=== PATIENT | female | born 1965 | race Caucasian/White ===

== ENCOUNTER 2020-11-05 08:25 | Outpatient (CLI) | payer BC, SELFPAY ==
--- NOTE | ~2020-11-05 | MM_ITS ---
EXAMINATION: MM screening cristiane BI w jimena HISTORY: Screening mammogram TECHNIQUE: Craniocaudal and mediolateral oblique 3-D tomosynthesis images were obtained and synthetic 2-D images were generated. CAD analysis was submitted and interpreted. COMPARISON: 10/07/2019, 09/08/2018, 08/17/2017 bilateral digital screening mammogram examinations BREAST PARENCHYMAL COMPOSITION: There are scattered areas of fibroglandular density. FINDINGS: There is no evidence of suspicious mass, calcification, or architectural distortion to sugg est malignancy in either breast. There has been no suspicious interval change. IMPRESSION: 1. No mammographic evidence of malignancy. 2. Recommend routine screening mammography in one year. BI-RADS Category 1: Negative Reviewed, dictated and finalized at location B. CE CLERK
== END 2020-11-05 08:26 | disposition home or self-care (01) ==
LOC: ANHIMG 08:27
PROVIDERS: PCP Family Medicine; Visit Provider Obstetrics & Gynecology
DX: Z12.31 Encounter for screening mammogram for malignant neoplasm of breast (principal)
CPT/HCPCS: 77063; 77067

== ENCOUNTER 2021-10-15 10:01 | Emergency (ER) | payer BC, SELFPAY ==
[2021-10-15 10:17] VITALS: BP 119/81; PULSE 71; RESP 18; TEMP 36.6; O2SAT 97
--- NOTE | 2021-10-15 10:24 | ED.FEMALEGU ---
HPI - Female Genitourinary General Chief complaint: Urogenital-Female Stated complaint: low back pain,frequent urge to urinate Source: patient and RN notes reviewed Limitations: no limitations History of Present Illness HPI Narrative: The patient, who is a prior history of UTIs, presents with urinary symptoms. Patient states she has half week history of typical urinary frequency, dysuria; no fever, vomiting/diarrhea, abdominal pain, blood. She was seen and treated with Macrobid here in the past month for pansensitive E. coli, with improvement. Related Data Home Medications Medication Instructions Recorded Confirmed hydroxychloroquine 200 mg tablet 200 mg PO BID 09/29/21 09/29/21 cyclobenzaprine mg 10/15/21 metoprolol succinate PO 10/15/21 metoprolol succinate PO 10/15/21 Allergies Allergy/AdvReac Type Severity Reaction Status Date / Time Aminoglycosides Allergy Unknown Unknown Verified 10/15/21 10:27 bacitracin Allergy Unknown Unknown Verified 10/15/21 10:27 codeine Allergy Unknown Unknown Verified 10/15/21 10:27 morphine Allergy Unknown Unknown Verified 10/15/21 10:27 neomycin Allergy Unknown Unknown Verified 10/15/21 10:27 POLYMYXINBSULF Allergy Unknown Unknown Uncoded 10/15/21 10:27 Review of Systems Review of Systems: General/Constitutional: No weight loss,fever Eyes: N0: Redness,discharge Ears/Nose/Throat: No: Epistaxis,ear discharge Respiratory: Denies: Hemoptysis Gastrointestinal: No Vomiting, Bleeding-rectal Skin: No Lumps, eruption Neurologic: No Focal Weakness,Sz Hematologic: Denies: Petechiae/Purpura Psychiatric: No: Suicida ideationl All Other Systems: Reviewed and Negative [facility] Past Medical History Medical History BMI 32.0-32.9,adult BMI 33.0-33.9,adult Family History Family History Grandparent Carcinoma of colon Family history of malignant neoplasm of uterus Sibling Family history of diabetes mellitus in first degree relative Social History Social History Smoking status: Never smoker Alcohol intake: never Substance use: never Substance use type: does not use 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 There is no relevant family history pertinent to the presenting complaint Exam Narrative: General Appearance: Well appearing, Conjunctiva clear Ears: External ear normal Mouth/Throat: Normal appearing, Normal lips, Supple Respiratory: Airway patent, No respiratory distress Cardiovascular: RRR Abdomen: Soft, Non-tender, No Musculoskeletal: Full ROM Skin: Warm, Dry Neurological: A&O x3, , Normal affect Course Vital Signs Vital signs: Vital Signs Temperature 97.8 F 10/15/21 10:17 Pulse Rate 71 10/15/21 10:17 Respiratory Rate 18 10/15/21 10:17 Blood Pressure 119/81 10/15/21 10:17 Pulse Oximetry 97 10/15/21 10:17 Temperature 97.8 F 10/15/21 10:17 Pulse Rate 71 10/15/21 10:17 Respiratory Rate 18 10/15/21 10:17 Blood Pressure 119/81 10/15/21 10:17 Pulse Oximetry 97 10/15/21 10:17 MDM - Female Genitourinary Lab Data Labs: Urine Glucose Negative Reference Range: Negative Urine Bilirubin Negative Reference Range: Negative Urine Ketone Negative Reference Range: Negative Urine Specific [place] 1.015 Referen
== END 2021-10-15 10:53 | disposition home or self-care (01) ==
PROVIDERS: Emergency Provider Emergency Medicine; PCP Family Medicine
DX: N30.90 Cystitis, unspecified without hematuria (principal); I10 Essential (primary) hypertension; E05.90 Thyrotoxicosis, unspecified without thyrotoxic crisis or storm
CPT/HCPCS: 81003; 87086; 99213; G0463

== ENCOUNTER → 2021-11-09 15:16 | Outpatient (CLI) | payer BC, SELFPAY ==
--- NOTE | ~2021-11-09 | MM_ITS ---
EXAMINATION: MM screening [facility] BI w jimena HISTORY: Screening mammogram TECHNIQUE: Craniocaudal and mediolateral oblique 3-D tomosynthesis images were obtained and synthetic 2-D images were generated. CAD analysis was submitted and interpreted. COMPARISON: 11/05/2020, 09/27/2019, 09/12/2018 BREAST PARENCHYMAL COMPOSITION: There are scattered areas of fibroglandular density. FINDINGS: There is no evidence of suspicious mass, calcification, or architectural distortion to sugg est malignancy in either breast. There has been no suspicious interval change. IMPRESSION: 1. No mammographic evidence of malignancy. 2. Recommend routine screening mammography in one year. BI-RADS Category 1: Negative Reviewed, dictated and finalized at location A. NING CUSTODIAN
== END ==
PROVIDERS: PCP Family Medicine; Visit Provider Obstetrics & Gynecology
DX: Z12.31 Encounter for screening mammogram for malignant neoplasm of breast (principal)
CPT/HCPCS: 77063; 77067

== ENCOUNTER → 2021-11-18 12:31 | Outpatient (CLI) | payer BC, SELFPAY ==
--- NOTE | ~2021-11-18 | DEXA_ITS ---
Bone Density Report Name: GHAZAL DUCKWORTH Age: 56 Sex: Female Ethnicity: White Date of : 1965 Indication: osteopenia; height loss; prior fracture; hysterectomy; postmenopausal Referring Provider: Matthew Shelton Study: Bone densitometry was performed. Exam Date: November 18, 2021 Accession number: [id number] Bone Density: Region BMD T-score Z-score Classification AP Spine (L1-L4) 0.846 -1.8 -0.5 Osteopenia Femoral Neck (Left) 0.733 -1.0 0.2 Normal Total Hip (Left) 0.921 -0.2 0.7 Normal Femoral Neck (Right) 0.724 -1.1 0.1 Osteopenia Total Hip (Right) 0.960 0.1 1.0 Normal Total Hip Mean 0.941 -0.1 0.9 Normal World Health Organization criteria for BMD impression classify patients as: Normal (T-score at or above -1.0), Osteopenia (T-score between -1.0 and -2.5), or Osteoporosis (T-score at or below -2.5). 10-year Fracture Risk(1): Major Osteoporotic Fracture 11% Hip Fracture 0.6% Reported Risk Factors: [place] (), Neck BMD=0.724, BMI=34.0, previous fracture (1) FRAX(R) Version 3.08. Fracture probability calculated for an untreated patient. Fracture probability may be lower if the patient has received treatment. Previous Exams: Region Exam Age BMD T-score BMD Change BMD Change Date g/cm2 vs Baseline vs Previous AP Spine(L1-L4) 11/18/2021 56 0.846 -1.8 -0.020 -0.020 02/16/2018 52 0.865 -1.7 Total Hip(Left) 11/18/2021 56 0.921 -0.2 -0.057 -0.057 02/16/2018 52 0.978 0.3 Total Hip(Right) 11/18/2021 56 0.960 0.1 -0.065 -0.065 02/16/2018 52 1.024 0.7 *Denotes significance at 95% confidence level, LSC for AP Spine = 0.022 g/cm2, LSC for Total Hip = 0.027 g/cm2 Clinical Information Provided by Patient: Has had a low trauma fracture Has the following medical conditions: Hysterectomy Patient maximum height was 65 Menopause Age: 38 Does not regularly consume dairy products Drinks caffeinated beverages Onset of menses at age 11 Number of children 2 Missed period for more than 6 months in a row Impression: The patient has low bone mass, based on the Total Spine T-score. The patient has an estimated ten-year risk of hip fracture of 0.6% and an estimated ten-year risk of major fracture of 11%, based on the WHO FRAX algorithm. The patient has risk factors, including: previous fracture. No significant bone loss was observed. Discussion: BONE DENSITY
== END ==
PROVIDERS: PCP Family Medicine; Visit Provider Obstetrics & Gynecology
DX: Z13.820 Encounter for screening for osteoporosis (principal); M85.89 Other specified disorders of bone density and structure, multiple sites
CPT/HCPCS: 77080

== ENCOUNTER 2022-10-21 00:36 | Day surgery (SDC) | payer BC, SELFPAY ==
[2022-09-23 11:00] VITALS: BMI 33.9
[2022-10-21 11:16] VITALS: BP 126/76; PULSE 96; RESP 18; TEMP 36.3; O2SAT 94
--- NOTE | 2022-10-21 11:16 | PM.HPGS ---
History of Present Illness History of Present Illness Consent: Risks, benefits, and alternatives have been discussed and questions answered. Patient agrees to proceed with procedure. Chief complaint: neoplasm screening Narrative: Kaye Martinez is a 57 year old female Presents for screening colonoscopy. Patient's current weight appetite and bowel movements are normal. Patient denies abdominal pain. She has had no bleeding. Patient has a past medical history of a colon polyp 10 years ago that was a benign hyperplastic polyp. Family history is significant that her grandfather had colon cancer. First her very relatives are normal there is no history of polyps. Specifically previous history of colon polyps in mother was erroneously. Review of Systems Review of Systems: Review of systems is noncontributory. 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 Gender identity (if verbalized by the patient): Female Sexual Orientation (if Verbalized by the Patient): Straight or Heterosexual Spiritual care concerns: No Agree to blood products: Yes Meds Home Medications and Allergies Home Medications Medication Instructions Recorded Confirmed Type hydroxychloroquine 200 mg tablet 200 mg PO BID 09/29/21 09/23/22 History cyclobenzaprine 10 mg tablet 10 mg PO PRN PRN Pain 10/15/21 09/23/22 History metoprolol succinate 25 mg 25 mg PO HS 10/15/21 09/23/22 History tablet,extended release 24 hr albuterol sulfate 90 mcg/actuation 1 inh inhalation Q4H PRN shortness 08/09/22 09/23/22 Rx aerosol inhaler (ProAir HFA) of breath or wheezing #6.7 grams vitamin B complex (B 1 tablet PO DAILY 08/22/22 09/23/22 History Complex-Vitamin B12 tablet) sodium,potassium,mag sulfates 17.5 See Rx Instructions PO .COMPLEX 09/01/22 09/23/22 Rx gram-3.13 gram-1.6 gram oral soln #354 mL (Suprep Bowel Prep Kit) levothyroxine 175 mcg tablet See Rx Instructions .Route 09/07/22 09/23/22 Rx .COMPLEX #90 tabs polyethylene glycol 3350 17 17 g PO PRN PRN Constipation 09/23/22 09/23/22 History gram/dose oral powder (Miralax) Allergies Allergy/AdvReac Type Severity Reaction Status Date / Time Aminoglycosides Allergy Unknown Unknown Verified 10/21/22 11:13 bacitracin Allergy Unknown Unknown Verified 10/21/22 11:13 codeine Allergy Unknown Unknown Verified 10/21/22 11:13 morphine Allergy Unknown Unknown Verified 10/21/22 11:13 carisoprodol [From Soma] AdvReac Unknown Confusion Verified 10/21/22 11:13 POLYMYXINBSULF Allergy Unknown Unknown Uncoded 10/21/22 11:13 Exam Narrative: Physical exam reveals patient to be alert. Vital signs stable. HEENT exam is unremarkable. Patient is anicteric. Lungs are clear to auscultation and percussion. Heart is without murmur or extra sounds. Abdomen bowel sounds present soft nontender with no hepatosplenomegaly. Digital external rectal exam is normal. Assessment and Plan Assessment and plan (1) Screening for colon cancer: Code(s): Z12.11 - Encounter for screening for malignant neoplasm of colon Status: Acute Assessment and Plan: Patient presents today for screening colonoscopy. Appears to be at average risk for colon polyps. Is noted patient's grandfather had colon cancer. Further recommendations may be given after endosco
[2022-10-21] MEDS: LACTATED RINGERS 1,000 ML 150 ML IV CONT (11:27)
--- NOTE | 2022-10-21 11:36 | WPDANESEPPF ---
Anes - Initial Pre Proc Eval Procedure: Operation Date: 10/21/22 12:30 Proposed Procedures p Screening Colonoscopy - Herberth Parker MD Date/Time: 10/21/22 11:36 Surgeon: Herberth Parker MD Pre Op Diagnosis: neoplasm screening Patient Data Age: 57 Gender: F Height: 1.64 m Weight: 93.5 kg Last Vital Signs Temp 36.3 C L 10/21/22 11:16 Pulse 96 10/21/22 11:16 Resp 18 10/21/22 11:16 BP 126/76 10/21/22 11:16 Pulse Ox 94 10/21/22 11:16 O2 Del Method Room Air 10/21/22 11:16 Allergies Allergy/AdvReac Type Severity Reaction Status Date / Time Aminoglycosides Allergy Unknown Unknown Verified 10/21/22 11:13 bacitracin Allergy Unknown Unknown Verified 10/21/22 11:13 codeine Allergy Unknown Unknown Verified 10/21/22 11:13 morphine Allergy Unknown Unknown Verified 10/21/22 11:13 carisoprodol [From Soma] AdvReac Unknown Confusion Verified 10/21/22 11:13 POLYMYXINBSULF Allergy Unknown Unknown Uncoded 10/21/22 11:13 Home Medications Medication Instructions Recorded Confirmed Type hydroxychloroquine 200 mg tablet 200 mg PO BID 09/29/21 09/23/22 History cyclobenzaprine 10 mg tablet 10 mg PO PRN PRN Pain 10/15/21 09/23/22 History metoprolol succinate 25 mg 25 mg PO HS 10/15/21 09/23/22 History tablet,extended release 24 hr albuterol sulfate 90 mcg/actuation 1 inh inhalation Q4H PRN shortness 08/09/22 09/23/22 Rx aerosol inhaler (ProAir HFA) of breath or wheezing #6.7 grams vitamin B complex (B 1 tablet PO DAILY 08/22/22 09/23/22 History Complex-Vitamin B12 tablet) sodium,potassium,mag sulfates 17.5 See Rx Instructions PO .COMPLEX 09/01/22 09/23/22 Rx gram-3.13 gram-1.6 gram oral soln #354 mL (Suprep Bowel Prep Kit) levothyroxine 175 mcg tablet See Rx Instructions .Route 09/07/22 09/23/22 Rx .COMPLEX #90 tabs polyethylene glycol 3350 17 17 g PO PRN PRN Constipation 09/23/22 09/23/22 History gram/dose oral powder (Miralax) Patient hx anesthesia problems: none Family hx anesthesia problems: none Results Review: All pre-operative results and documents have been reviewed as part of the pre-operative evaluation. [facility] Past Medical History Medical History (Updated 10/21/22 @ 11:37 by Yovanny Banda MD) BMI 34.0-34.9,adult HTN (hypertension) SLE (systemic lupus erythematosus) Surgical History Surgical History (Updated 10/21/22 @ 11:37 by Yovanny Banda MD) H/O laparoscopy H/O sinus surgery H/O: hysterectomy History of shoulder surgery Family History Family History Grandparent Carcinoma of colon Family history of malignant neoplasm of uterus Sibling Family history of diabetes mellitus in first degree relative Social History Social History Smoking status: Never smoker Alcohol intake: never Substance use: never Substance use type: does not use Living arrangements: with family 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 Gender identity (if verbalized by the patient): Female Sexual Orientation (if Verbalized by the Patient): Straight or Heterosexual Spiritual care concerns: No Agree to blood products: Yes Anes - Eval Final PreProcedure Day of Procedure 10/21/22 11:36 Patient weight: obese Heart: regular rate and rhythm Lungs: clear to auscultation Airway: Mallampati scale class II Neurological: alert and oriented Last oral intake: >/= 8 hours ASA classification: III Emergent: no Anesthetic plan: proceed Anesthesia type and monitoring: general GIVS and standard monitoring Results Review: All pre-operative results and documents have been reviewed as part of the pre-operative evaluation. Informed Consent: The patient's anesthetic plan and its attendant risks and benefits were discussed with the patient/family/POA. Questions were solicited and answers provided to the satisfaction of the patient/family/POA.
[2022-10-21 12:19] VITALS: BP 115/90; PULSE 81; RESP 25; O2SAT 100
[2022-10-21 12:29] VITALS: BP 122/76; PULSE 69; RESP 20; O2SAT 100
[2022-10-21 12:39] VITALS: BP 119/76; PULSE 65; RESP 15; O2SAT 100
== END 2022-10-21 12:53 | disposition home or self-care (01) ==
PROVIDERS: PCP Family Medicine; Visit Provider Internal Medicine Gastroenterology
PROC: 0DJD8ZZ Inspection of Lower Intestinal Tract, Via Natural or Artificial Opening Endoscopic (ICD-10-PCS; CPT 45378; principal; 2022-10-21 12:30)
DX: Z12.11 Encounter for screening for malignant neoplasm of colon (principal); K64.8 Other hemorrhoids; K57.30 Diverticulosis of large intestine without perforation or abscess without bleeding; I10 Essential (primary) hypertension; M32.9 Systemic lupus erythematosus, unspecified; Z79.51 Long term (current) use of inhaled steroids; E66.9 Obesity, unspecified; Z68.34 Body mass index [BMI] 34.0-34.9, adult
CPT/HCPCS: 45378; J2704; J7120

== ENCOUNTER 2022-12-16 09:26 | Outpatient (CLI) | payer BC, SELFPAY ==
--- NOTE | ~2022-12-16 | MM_ITS ---
EXAMINATION: MM screening cristiane BI w jimena HISTORY: Screening TECHNIQUE: Craniocaudal and mediolateral oblique 3-D tomosynthesis images were obtained and synthetic 2-D images were generated. CAD analysis was submitted and interpreted. COMPARISON: Comparison to multiple prior studies sequentially, with oldest reviewed study dated 08/04. BREAST PARENCHYMAL COMPOSITION: The breasts are almost entirely fatty. FINDINGS: There is no evidence of suspicious mass, calcification, or architectural distortion to sugg est malignancy in either breast. There has been no suspicious interval change. IMPRESSION: 1. No mammographic evidence of malignancy. 2. Recommend routine screening mammography in one year. BI-RADS Category 1: Negative Reviewed, dictated and finalized at location A. TRICAL ENGINEERING PROFESSOR
== END 2022-12-16 09:27 | disposition home or self-care (01) ==
LOC: ANHIMG 09:28
PROVIDERS: PCP Family Medicine; Visit Provider Obstetrics & Gynecology
DX: Z12.31 Encounter for screening mammogram for malignant neoplasm of breast (principal)
CPT/HCPCS: 77063; 77067

== ENCOUNTER 2023-12-19 13:46 | Outpatient (CLI) | payer BC, SELFPAY ==
--- NOTE | ~2023-12-19 | MM_ITS ---
EXAMINATION: MM screening cristiane BI w jimena HISTORY: Screening TECHNIQUE: Craniocaudal and mediolateral oblique 3-D tomosynthesis images were obtained and synthetic 2-D images were generated. CAD analysis was submitted and interpreted. COMPARISON: Comparison to multiple prior studies sequentially, with oldest reviewed study dated 08/17. BREAST PARENCHYMAL COMPOSITION: Breast composed of scattered areas of fibroglandular density FINDINGS: There is no evidence of suspicious mass, calcification, or architectural distortion to sugg est malignancy in either breast. There has been no suspicious interval change. IMPRESSION: 1. No mammographic evidence of malignancy. 2. Recommend routine screening mammography in one year. BI-RADS Category 1: Negative Reviewed, dictated and finalized at location A. RTMENT OF SOCIOLOGY CHAIR
== END 2023-12-19 13:47 | disposition home or self-care (01) ==
PROVIDERS: PCP Family Medicine; Visit Provider Obstetrics & Gynecology
DX: Z12.31 Encounter for screening mammogram for malignant neoplasm of breast (principal)
CPT/HCPCS: 77063; 77067

== ENCOUNTER → 2023-12-27 14:51 | Outpatient (CLI) | payer BC, SELFPAY ==
--- NOTE | ~2023-12-27 | XR_ITS ---
EXAMINATION: XR chest 2V DATE: 12/27/2023 15:03 INDICATION: Chronic cough. TECHNIQUE: Frontal and lateral views of the chest were obtained. COMPARISON: Chest 2 views 04/01/2010 FINDINGS: There is no pneumonia, pleural effusion, or pneumothorax. The heart size is normal. IMPRESSION: 1. No acute cardiopulmonary disease. Reviewed, dictated and finalized at location E. NG MACHINE OPERATOR VERTICAL
== END ==
PROVIDERS: PCP Physician Assistant; Visit Provider Physician Assistant
DX: R05.9 Cough, unspecified (principal)
CPT/HCPCS: 71046

== ENCOUNTER 2024-03-18 15:31 | Outpatient (CLI) | payer BC, SELFPAY ==
--- NOTE | ~2024-03-18 | XR_ITS ---
EXAMINATION: XR chest 2V 03/18/2024 16:02 INDICATION: Pneumonia PROCEDURE: 2 view chest COMPARISON: 12/27/2023 FINDINGS: The lungs are clear. The cardiomediastinal silhouette is within normal limits. There are no pleural effusions. There is no pneumothorax suspected. IMPRESSION: 1: NO ACUTE CARDIOPULMONARY DISEASE. Reviewed, dictated and finalized at location B.
== END 2024-03-18 15:32 ==
PROVIDERS: PCP Family Medicine; Visit Provider Physician Assistant
DX: J18.9 Pneumonia, unspecified organism (principal)
CPT/HCPCS: 71046

== ENCOUNTER 2024-11-14 11:51 | Outpatient (CLI) | payer BC, SELFPAY ==
--- NOTE | ~2024-11-14 | XR_ITS ---
XR chest 2V Ordering provider: Lizette Mallory APRN History: 59 years Female with . R06.2 - Wheezing . Comparison: None. FINDINGS: MEDIASTINUM: The cardiac silhouette is not enlarged. LUNGS: No infiltrates, effusions or pneumothorax. OTHER: No free air under the diaphragm. IMPRESSION: No acute cardiopulmonary pathology. Reviewed, dictated and finalized at location A. OLOGY PHYSICIAN ASSISTANT
== END 2024-11-14 11:52 | disposition home or self-care (01) ==
PROVIDERS: PCP Family Medicine; Visit Provider Nurse Practitioner Adult Health
DX: R06.2 Wheezing (principal); J40 Bronchitis, not specified as acute or chronic; R05.3 Chronic cough
CPT/HCPCS: 71046

== ENCOUNTER 2025-03-13 09:41 | Outpatient (CLI) | payer BC, SELFPAY ==
--- NOTE | ~2025-03-13 | MM_ITS ---
EXAMINATION: MM screening cristiane BI w jimena HISTORY: Screening TECHNIQUE: Craniocaudal and mediolateral oblique 3-D tomosynthesis images were obtained and synthetic 2-D images were generated. CAD analysis was submitted and interpreted. COMPARISON: Comparison to multiple prior studies sequentially, with oldest reviewed study dated 08/21. BREAST PARENCHYMAL COMPOSITION: Not Dense: The breasts are almost entirely fatty. FINDINGS: There is no evidence of suspicious mass, calcification, or architectural distortion to sugg est malignancy in either breast. There has been no suspicious interval change. IMPRESSION: 1. No mammographic evidence of malignancy. 2. Recommend routine screening mammography in one year. BI-RADS Category 1: Negative Reviewed, dictated and finalized at location A.
--- OUTSIDE RECORDS SUMMARY | 2025-03-13 10:40 | XMS_ITS | Clinical Summary ---
Author Organization [facility] Address [address] [place] [id number] Care Team Providers Care Educational Assistant Name Role Phone Alfredo Carey MD Primary Care Provider [phone] Social History Tobacco Use Types Packs/Day Years Used Date Smoking Tobacco: Never Assessed Comments Unknown Sex and Gender Information Value Date Recorded Sex Assigned at Not on file Legal Sex Female 6:30 PM CDT Gender Identity Not on file Sexual Orientation Not on file Plan of Treatment Health Maintenance Due Date Last Done Comments Cervical Cancer Screening Pa p Smear (Age 30 to 64) Every 3 Years 1965 Colorectal Cancer Screening Colonoscopy (10 Years) 1963 Annual Physical 1966 Hepatitis C 1981 DTaP, Tdap and Td Vaccines ( 1 - Tdap) 1982 Cervical Cancer Screening Pa p with HPV Testing (Age 30 to 64) Every 5 Years 1993 Cervical Cancer Screening with HPV 1993 Mammogram Screening 2003 Pneumococcal Vaccine: 50+ Ye ars (1 of 1 - PCV) 2013 Zoster Vaccines (1 of 2) 2013 COVID-19 Vaccine ( - 2023-2 5 season) 2024 RSV Immunization or 60+ Years (1 - 1-dose 75+ series) 2038 Meningococcal B Vaccine Aged Out No l onger eligible based on patient's age to complete this topic Meningococcal Vaccine Aged Out No prema jose eligible based on patient's age to complete this topic RSV Immunizations Under 20 Months Aged Out No longer eligible based on patient's age to complete this topic Care Teams Educational Assistant Relationship Specialty Start Date End Date Alfredo Carey MD [address] [place] [address] [facility] - General 10/07/13
--- OUTSIDE RECORDS SUMMARY | 2025-03-13 10:40 | XMS_ITS | Encounter Summary ---
Author Organization [facility] Address [address] [place] [address] Care Team Providers Care Scoop Machine Operator Name Role Phone Alfredo Carey MD Primary Care Provider [phone] Encounter Details Date Type Department Care Team (Late st Contact Info) Description 12/07/2020 Lab Requisition [facility] [address] [facility] [facility] [place] [id number] Sherry Kruger MD [address] [place] [address] Social History Tobacco Use Types Packs/Day Years Used Date Smoking Tobacco: Never Smokeless Tobacco: Never Comments No Sex and Gender Information Value Date Recorded Sex Assigned at Female 01/08/2021 2:22 PM PRODUCTION SCHEDULER Legal Sex Female 5:52 PM PRODUCTION SCHEDULER Gender Identity Female 01/08/2021 2:22 PM PRODUCTION SCHEDULER Sexual Orientation Straight 01/08/2021 2: 22 PM PRODUCTION SCHEDULER documented as of this encounter Plan of Treatment Not on file documented as of this encounter Procedures Procedure Name Priority Date/Time Associated Diagnosis Comments DERMATOPATHOLOGY Routine 12/03/2020 3:27 AM PRODUCTION SCHEDULER documented in this encounter Results * DERMATOPATHOLOGY (12/03/2020 3:27 AM PRODUCTION SCHEDULER) Case Report Dermatopathology Report Case: [id number] Authorizing Provider: Sherry Kruger MD Collected: 12/03/2020 03:27 AM Ordering Location: [facility] Derm[facility] Lab Received: 12/07/2020 10:40 AM Pathologist: Mack Osorio MD Specimen: Skin, right calf 1 2:54 PM [facility] DERMATOPATHOLOGY LABORATORY Final Diagnosis Specimen A. SKIN, right calf: VERRUCA VULGARIS (B07.8) 1 2:54 PM [facility] DERMATOPATHOLOGY LABORATORY Clinical History Langdon crusted papule. SCC vs SK. 1 2:54 PM PRODUCTION SCHEDULER DERMATOPATHOLOGY LABORATORY Gross Description Specimen A: Received is one formalin filled container labeled with the patient's name and designated right calf. The specimen consists of a shave measuring [id number]. Jar 0+. 1 2:54 PM [facility] DERMATOPATHOLOGY LABORATORY Microscopic Description Specimen A. SKIN, right calf: There is digitated epidermal hyperplasia, hypergranulosis, vacuolated granular layer cells, and compact hyperorthokeratosis . 1 2:54 PM [facility] DERMATOPATHOLOGY LABORATORY Disclaimer An external and internal positive and negative controls are appropriate for the histochemical, immunohistochemical and immunofluorescence stain(s) in this case (if any), except where stated explicitly. The performance characteristics of the stain(s) cited in this report were developed and its performance characteristic determined by the Dermatopathology Laboratory at [facility], directed by Dr. Sammy Osorio. These tests need not be, and therefore are not, approved by the [place] Food and Drug Administration. The tests are used for clinical purposes. Billing Codes Specimen Charges Stain Charges 91227 1 1 2:54 PM [facility] DERMATOPATHOLOGY LABORATORY Embedded Images 1 2:54 PM [facility] DERMATOPATHOLOGY LABORATORY Pathology/Cytolo gy TISSUE SPECIMEN FROM SKIN / Unknown 12/03/2020 3:27 AM PRODUCTION SCHEDULER 12/07/2020 10:40 AM PRODUCTION SCHEDULER us Sherry Kruger MD LAB - PATHOLOGY/CYTOLOGY ORD ERABLES Final Result DERMATOPATHOLOGY LABORATORY [facility] - Department of Dermatology [address] [phone] documented in this encounter Visit Diagnoses Not on filedocumented in this encounter Care Teams Scoop Machine Operator Relationship Specialty Start Date End Date Alfredo Carey MD [address] [place] [address] PCP - General 02/28/12 documented as of this encounter
--- OUTSIDE RECORDS SUMMARY | 2025-03-13 10:40 | XMS_ITS | Clinical Summary ---
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 Gender Identity Not on file Sexual Orientation Not on file Plan of Treatment Health Maintenance Due Date Last Done Comments Hepatitis C Virus (HCV) Screening 1963 Pap Smear 1984 Cervical Cancer Screening (CCS) 1993 HPV/Cotest 1993 Colonoscopy 2008 Colorectal Cancer Screening 2008 Cologuard 2013 Immunochemical Fecal Occult Blood 2013 Mammogram 2013 Pneumococcal Immunization (5 0+ years) (1 of 1 - PCV) 2013 Zoster Immunization (1 of 2) 2013 Influenza Immunization (#1) 07/21/202412/2019, 08/24/2017 SARS-COV-2 Immunization ( - 2023-25 season) 2024 Respiratory Syncytial Virus (RSV) Immunization (Adult) (1 - 1-dose 75+ series) 2038 DTaP/Tdap/Td Immunization Discontinued 10/26/2015 TdaP Immunization Completed 10/26/2015 Hepatitis B Immunization Aged Out No longer eligible based on patient's age to complete this topic Meningococcal Immunization (ACWY) Aged Out No longer eligible based on patient's age to complete this topic Pneumococcal Immunization Combined Aged Out No longer eligible based on patient's age to complete this topic Rotavirus Immunization Aged Out No lo nger eligible based on patient's age to complete this topic
--- OUTSIDE RECORDS SUMMARY | 2025-03-13 10:40 | XMS_ITS | Clinical Summary ---
Author Organization [facility] Address [address] [facility] [place] [address] Care Team Providers Care Pipe Insulator Helper Name Role Phone Alfredo Carey MD Primary Care Provider [phone] Source Comments [facility],non-owned Affiliates and Associated Physician Practices is amultiple site organization consisting of ambulatory clinics and hospital sitesin [place], [place], [place] and [place]. This disclosure is being madepursuant to the Care Everywhere program and may not contain all information available regarding this patient. Last updated 18.[facility] Allergies Active Allergy Reactions Criticality Noted Date Comments Hydrocodone Nausea and/or Vomiting High 08/25/2019 Morphine Other High 08/25/2019 Hypotension Medications * Be aware that medications may not be up to date on this document. Alwaysverify current medications with the patient. METOPROLOL SUCCINATE PO Active levothyroxine (SYNTHROID) 150 MCG tablet Take 150 mcg by mouth daily before breakfast Active Aspirin-Acetami nophen-Caffeine (EXCEDRIN PO) Active Family History Medical History Relation Name Comments Diabetes - Type 2 Brother Relation Name Status Comments Brother Social History Tobacco Use Types Packs/Day Years Used Date Smoking Tobacco: Never Smokeless Tobacco: Never Comments No Sex and Gender Information Value Date Recorded Sex Assigned at Female 01/08/2021 2:22 PM ART INSTALLER Legal Sex Female 5:52 PM ART INSTALLER Gender Identity Female 01/08/2021 2:22 PM ART INSTALLER Sexual Orientation Straight 01/08/2021 2: 22 PM ART INSTALLER Last Filed Vital Signs Vital Sign Reading Time Taken Comments Blood Pressure 118/82 08/25/2019 12:26 PM CDT Pulse 61 08/25/2019 12:26 PM CDT Temperature 36.6 C (97.8 F) 08/25/2019 12:26 PM CDT Respiratory Rate 16 08/25/2019 12:26 PM CDT Oxygen Saturation 98% 08/25/2019 12:26 PM CDT Inhaled Oxygen Concentration - - Weight 90.7 kg (200 lb) 08/25/2019 12:26 PM CDT Height 163.8 cm (5' 4.5 ) 08/25/2019 12:26 PM CD T Body Mass Index 33.8 08/25/2019 12:26 PM CDT Plan of Treatment Health Maintenance Due Date Last Done Comments COLOGUARD (AGES 45-75) - COL ON CA SCREENING 1963 COLON MONITORING 1963 COLONOSCOPY - COLON CA SCREENING 1963 CT COLONOGRAPHY - COLON CA SCREENING 1963 Colorectal Cancer Screening 1963 FIT - COLON CA SCREENING 1963 FLEX SIG - COLON CA SCREENING 1963 LIPID TESTING 1963 MAMMOGRAM 1963 PAP SMEAR 1963 HIV SCREENING 1978 HEPATITIS C SCREENING 08/22/1981 DTAP/TDAP/TD VACCINES (1 - Tdap) 1982 PNEUMOCOCCAL VACCINE 50+ (1 of 1 - PCV) 2013 ZOSTER VACCINE (1 of 2) 2013 SCREENING FOR DIABETES 08/25/2019 COVID-19 VACCINE ( - 2023-2 5 season) 2024 DEPRESSION SCREENING 11/20/2024 INFLUENZA VACCINE (Season Ended) 2025 Respiratory Syncytial Virus (RSV) Vaccine Pt: or over 60 yrs (1 - 1-dose 75+ series) 2038 HEPATITIS B VACCINE Aged Out No longe r eligible based on patient's age to complete this topic HIB VACCINE Aged Out No longer eligi ble based on patient's age to complete this topic HPV VACCINE Aged Out No longer eligi ble based on patient's age to complete this topic MENINGOCOCCAL (Group B) VACC INE SHARED DECISION-MAKING Aged Out No longer eligibl e based on patient's age to complete this topic MENINGOCOCCAL GROUPS A/C/Y/W VACCINE Aged Out No longer eligible b ased on patient's age to complete this topic Insurance ANTHEM ANTHEM Care Teams Pipe Insulator Helper Relationship Specialty Start Date End Date Alfredo Carey MD [address] [place] [address] PCP - General 02/28/12
--- OUTSIDE RECORDS SUMMARY | 2025-03-13 10:40 | XMS_ITS | Clinical Summary ---
Author Organization [facility] Address [address] [place] [address] Care Team Providers Care Terminal System Operator Name Role Phone Alfredo Carey MD Primary Care Provider [phone] Allergies Active Allergy Reactions Criticality Noted Date Comments Carisoprodol Mental status changes,Other (See comments) Medium 04/20/1987 disorientation Cilantro Other (See comments) Low 11/23/2022 Hoarseness Codeine Nausea & Vomiting,Nausea only,Vomiting Low 08/20/1984 Morphine Seizures,Hypotension ,He adache,Palpitations High 06/29/2004 Hypotension Other reaction(s): Hypotension Medications hydrOXYchloroQUIN E (PLAQUENIL) 200 mg tabletIndications :Systemic Lupus Erythematosus Take 1 tablet (200 mg total) by mouth 2 (two) times a day 1 Active levothyroxine (SYNTHROID) 175 mcg tabletIndications :hypothyroidism Take 1 tablet (175 mcg total) by mouth daily 1 Active metoprolol XL (TOPROL-XL) 50 mg extended release tabletIndications :hypertension,PVC 's Take 1 tablet (50 mg total) by mouth nightly 3 Active predniSONE (DELTASONE) 10 mg tabletIndications :autoimmune disease,takes with lupus exacerbation Take 1 tablet (10 mg) by mouth as needed Active triamcinolone (Nasacort) 55 mcg nasal inhalerIndication s:Allergic Rhinitis,Allergic Rhinitis Prevention Administer 1 spray into each nostril as needed for rhinitis or allergies 4 Active cyclobenzaprine (FLEXERIL) 10 mg tabletIndications :Muscle Spasm Take 1 tablet (10 mg total) by mouth nightly as needed for muscle spasms 3 Active famotidine (PEPCID) 10 mg tabletIndications :Prevention of Stress Ulcer Take 1 tablet (10 mg total) by mouth 2 (two) times a day as needed for heartburn Active albuterol HFA (PROVENTIL HFA,VENTOLIN HFA,PROAIR HFA) 90 mcg/actuation inhalerIndication s:Bronchospasm Prevention,reacti ve airway disease Inhale 2 puffs every 6 (six) hours as needed for wheezing Active senna-docusate (PERICOLACE) 8.6-50 mg Take 1 tablet by mouth daily for 14 days 14 tablet 4 Active oxyCODONE (ROXICODONE) 5 mg immediate release tabletIndications :Pain Take 1 tablet (5 mg total) by mouth every 6 (six) hours as needed for pain for up to 5 doses 5 tablet 4 Active budesonide (Pulmicort) 0.5 mg/2 mL nebulizer solution Mix 1 capsule/ampule in 250 ml of saline irrigation (zander med sinus rinse) and irrigate each nostril with half of the bottle twice a day 120 mL 3 5 Active Active Problems Patient Care Coordination No te Formatting of this note migh t be different from the original. sinus Problem Noted Date Diagnosed Date Calculus of gallbladder with out cholecystitis without obstruction 08/16/2024 Unifocal PVCs 11/23/2022 Tachycardia, unspecified 11/23/2022 Somnolence 11/23/2022 Snoring 11/23/2022 Sensation of chest tightness 11/23/2022 Right ventricular diastolic dysfunction 11/23/19 Palpitations 11/23/2022 Obesity 11/23/2022 Mitral valve disease 11/23/2022 Hypothyroidism 11/23/2022 HLD (hyperlipidemia) 11/23/2022 Exercise-induced angina 11/23/2022 Endothelial dysfunction of coronary artery 11/23 Dyspnea on exertion 11/23/2022 Encounters Date Type Department Care Team Description 02/27/2025 8:21 AM CDT - 02/27/2025 11:59 PM CDT Hospital Encounter [facility] [address] [place] [address] Chronic sinusitis, unspecified location Discharge Disposition: Discharge to home or self care 02/13/2025 1:00 PM CDT Office Visit [facility] ([facility]) [facility]NT [address], [address] [place] [address] James Eduardo MD Chronic sinusitis, unspecified location (Primary Dx) from Last 3 Months Immunizations Immunization Administration Dates Next Due Influenza, Quadrivalent, Inna l Culture-based MDCK, Preservative Free, Antibiotic Free, Intramuscular 08/21/2020,08/24/2017 Tdap 10/26/2015 Surgical History Surgery Date Site/Laterality Comments HYSTEROTOMY 11/20/2003 - 11/19/2004 with hysterectomy SHOULDER SURGERY 11/20/2007 - 11/19/2008 Left KNEE SURGERY 11/20/2018 - 11/19/2019 Left LAPAROSCOPY 11/20/2003 - 11/19/2004 abd lap Medical History Medical History Date Comments Arthritis Migraines Obesity Raynaud phenomenon Thyroid disease History of irregular heartbeat Lupus Peptic ulceration Osteoarthritis Autoimmune disease 01/2020 Delayed emergence from gener al anesthesia did not require prolong stay , ICU stay or positive pressure therapy PONV (postoperative nausea and vomiting) after shoulder surgery, admitted PONV x 24 hours, resolved once anti-emetic recieved Motion sickness Cardiac complication hx of hypot ension with emergence Family History Medical History Relation Name Comments Diabetes Brother Tk Spondylolisthesis Father Anesthesia problems Mother Amanda Gee PONV Arthritis Mother Amanda Gee Hypertension Mother Amanda Gee Relation Name Status Comments Brother Tk Father Mother Amanda Gee Social History Tobacco Use Types Packs/Day Years Used Date Smoking Tobacco: Never Smokeless Tobacco: Never Tobacco Cessation:Counseling Given: Not Answered AUDIT-C Answer Date Recorded Q1: How often do you have a drink containing alcohol? Never 08/29/2024 Q2: How many drinks containi ng alcohol do you have on a typical day when you are drinking? Patient does not drink Q3: How often do you have si x or more drinks on one occasion? Never 08/29/2024 Personal Safety Answer Date Recorded Have you ever been in or are you currently in a harmful physical or emotional relationship or is someone making you feel afraid or unsafe? 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 Gender Identity Female 06/14/2021 9:06 AM CDT Sexual Orientation Straight 06/14/2021 9: 06 AM CDT Obstetrics History Last Filed Vital Signs Vital Sign Reading Time Taken Comments Blood Pressure 105/69 08/29/2024 11:30 AM CDT Pulse 60 08/29/2024 11:30 AM CDT Temperature 36 C (96.8 F) 08/29/2024 9:22 AM CDT Respiratory Rate 23 08/29/2024 11:30 AM CDT Oxygen Saturation 94% 08/29/2024 11:30 AM CDT Inhaled Oxygen Concentration - - Weight 99.8 kg (220 lb) 08/29/2024 6:13 AM CDT Height 165.1 cm (5' 5 ) 08/29/2024 6:13 AM CDT Body Mass Index 36.61 08/29/2024 6:13 AM CDT Plan of Treatment Health Maintenance Due Date Last Done Comments Breast Cancer Screening-Mammogram 1963 Colon Cancer Screening-Colonoscopy 1963 Depression Screening 1963 Hepatitis C Screening 1963 Regular Well Visit/Exam 18-64 1981 Pneumococcal vaccine <65 (1 of 2 - PCV) 1982 Zoster Vaccine (1 of 2) 1982 Covid-19 Vaccine (3 - Modern a risk series) 02/26/2021 01/29/2021, 01/01/2021 DTaP/Tdap/Td Vaccine (3 - Td or Tdap) 01/18/2026 01/19/2016, 10/26/2015 Hepatitis B Screening Completed 08/20/1987 Influenza Vaccine Completed 08/19/2024, , 08/21/2020, Additional history exists Procedures Procedure Name Priority Date/Time Associated Diagnosis Comments CT SINUS STEALTH WO CONTRAST Schedule Routine, Read Routine (OP Routine) 02/27/2025 8:38 AM CDT Chronic sinusitis, unspecified location from Last 3 Months Results * CT Sinus Stealth WO Contrast (02/27/2025 8:38 AM CDT) Anatomical Region Laterality Modality Head N/A Computed Tomogra phy 02/27/2025 1:22 PM CDT Narrative 02/27/2025 1:29 PM CDT EXAM DESCRIPTION: CT SINUS STEALTH WO CONTRAST REASON FOR STUDY: Chronic Sinusitis Sinusitis chronic. Dental pain. Right sinus infection. Planning for potential implant. TECHNIQUE: Noncontrast scanning through the paranasal sinuses using bone algorithm. Reconstructed MPR images reviewed. All images stored on PACS. Automated exposure control was used as a dose optimization technique for this examination. COMPARISON: None available. FINDINGS: Right frontal sinus is near completely opacified with some foamy secretions. Left frontal sinus with minimal mucosal thickening along the inferior aspect. Mucosal thickening about the frontoethmoidal recesses, flonn-kfgqorg-bioy-left. Mucosal thickening in the bilateral ethmoid air cells, multiple of which are opacified. There are some foamy secretions in the posterior right ethmoid air cell. Right and left sphenoid sinus has accessory septations. The bilateral sphenoid sinuses, left sphenoid ostium and sphenoethmoidal recess is predominantly clear. Mucosal thickening about the ostium of the right sphenoid sinus. Status post right maxillary antrostomy. Agzm-xg-qpbqumrb polypoid mucosal thickening in the right maxillary sinus. Status post left maxillary antrostomy with moderate to severe polypoid mucosal thickening. Chronic nasal bone deformity. Nasal septum is almost at midline. There is scattered mucosal thickening in the nasal cavity on both sides. The bilateral mastoid air cells are predominantly clear. The temporomandibular joints are symmetrically placed. The zygomatic arches are intact. The dental amalgam related streak artifact limits the assessment of the adjacent structures including the oral cavity and oropharynx. Some of the teeth are missing. Note made of torus palatini. Soft tissues are suboptimally evaluated on this unenhanced sinus CT. The bilateral globes are symmetric. IMPRESSION: 1. Sinonasal postoperative changes. 2. Inflammatory changes in the paranasal sinuses as described. The foamy secretions can be seen with acute on chronic sinusitis in the proper clinical scenario. 3. Previous imaging studies are not available for comparison. An addendum can be made once priors are provided. THIS IS AN ELECTRONICALLY VERIFIED FINAL REPORT 02/27/2025 1:29 PM - Electronically signed by Pal MERCADO T: Report ID: [id number] Reading Location: [id number] Procedure Note William Pal, DO - 02/27/2025 EXAM DESCRIPTION: CT SINUS STEALTH WO CONTRAST REASON FOR STUDY: Chronic Sinusitis Sinusitis chronic. Dental pain. Right sinus infection. Planning forpotential implant. TECHNIQUE: Noncontrast scanning through the paranasal sinuses using bone algorithm. Reconstructed MPR images reviewed. All images stored on PACS. Automated exposure control was used as a dose optimization technique forthis examination. COMPARISON: None available. FINDINGS: Right frontal sinus is near completely opacified with some foamy secretions. Left frontal sinus with minimal mucosal thickening along the inferior aspect. Mucosal thickening about the frontoethmoidal recesses, jfcbh-vvyhnor-hlim-left. Mucosal thickening in the bilateral ethmoid air cells, multiple of whichare opacified. There are some foamy secretions in the posterior right ethmoidair cell. Right and left sphenoid sinus has accessory septations. The bilateral sphenoid sinuses, left sphenoid ostium and sphenoethmoidal recess is predominantly clear. Mucosal thickening about the ostium of the right sphenoid sinus. Status post right maxillary antrostomy. Wukt-da-olmtepri polypoid mucosal thickening in the right maxillary sinus. Status post left maxillary antrostomy with moderate to severe polypoid mucosal thickening. Chronic nasal bone deformity. Nasal septum is almost at midline. Thereis scattered mucosal thickening in the nasal cavity on both sides. The bilateral mastoid air cells are predominantly clear. The temporomandibular joints are symmetrically placed. The zygomatic archesare intact. The dental amalgam related streak artifact limits the assessment of the adjacent structures including the oral cavity and oropharynx. Some of the teeth are missing. Note made of torus palatini. Soft tissues are suboptimally evaluated on this unenhanced sinus CT. The bilateral globesare symmetric. IMPRESSION: 1. Sinonasal postoperative changes. 2. Inflammatory changes in the paranasal sinuses as described. Thefoamy secretions can be seen with acute on chronic sinusitis in the properclinical scenario. 3. Previous imaging studies are not available for comparison. Anaddendum can be made once priors are provided. THIS IS AN ELECTRONICALLY VERIFIED FINAL REPORT 02/27/2025 1:29 PM - Electronically signed by Pal MERCADO T: Report ID: [id number] Reading Location: [place] [address] James Eduardo MD IMG CT PROCEDURES Sue l Result from Last 3 Months Insurance VANCL VANCL ANTHEM ACCESS CHOICE Advance Directives For more information, please contact: [phone] Documents on File Type Date Recorded Patient Lube Man Expl anation ADVANCE DIRECTIVE 08/29/2024 8:36 AM Xochitl r of Owner Operator-Medical Care Teams Terminal System Operator Relationship Specialty Start Date End Date Alfredo Carey MD PCP - General Family Medicine 06/07/21
--- OUTSIDE RECORDS SUMMARY | 2025-03-13 10:40 | XMS_ITS | Referral Summary ---
Author Organization [facility] Address [address] [place] [address] Care Team Providers Care Lubrication Supervisor Name Role Phone Alfredo Carey MD Primary Care Provider Encounters Date Type Department Care Team Description 02/27/2025 8:21 AM CDT - 02/27/2025 11:59 PM CDT Hospital Encounter [facility] [address] [place] [address] Chronic sinusitis, unspecified location Discharge Disposition: Discharge to home or self care 02/13/2025 1:00 PM CDT Office Visit [facility]) [facility] [address], [address] [place] [address] James Eduardo MD Chronic sinusitis, unspecified location (Primary Dx) from Last 3 Months Allergies Active Allergy Reactions Criticality Noted Date [...] coronary artery 11/23 Dyspnea on exertion 11/23/2022 Immunizations Immunization Administration Dates Next Due Influenza, Quadrivalent, Inna l Culture-based MDCK, Preservative Free, Antibiotic Free, Intramuscular 08/21/2020,08/24/2017 Tdap 10/26/2015 Social History Tobacco Use Types Packs/Day Years [...] on file 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 Mucosal thickening about the frontoethmoidal recesses, gdcex-mdfqaax-jqpt-left. Mucosal thickening in the bilateral ethmoid air cells, multiple of which are opacified. There are some foamy secretions in the posterior right ethmoid air cell. Right and left sphenoid sinus has accessory septations. The bilateral sphenoid sinuses, left sphenoid ostium and sphenoethmoidal recess is predominantly clear. Mucosal thickening about the ostium of the right sphenoid sinus. Status post right maxillary antrostomy. Qwft-yj-vigvjatr polypoid mucosal thickening in the right maxillary [...] signed by Pal MERCADO T: Report ID: [id number] Reading Location: [id number] Procedure Note Pal Thomas, DO - 02/27/2025 EXAM DESCRIPTION: CT SINUS [...] aspect. Mucosal thickening about the frontoethmoidal recesses, kvvps-hgkyvqm-snje-left. Mucosal thickening in the bilateral ethmoid air cells, multiple of whichare opacified. There are some foamy secretions in the posterior right ethmoidair cell. Right and left sphenoid sinus has accessory septations. The bilateral sphenoid sinuses, left sphenoid ostium and sphenoethmoidal recess is predominantly clear. Mucosal thickening about the ostium of the right sphenoid sinus. Status post right maxillary antrostomy. Vukn-we-mxpiaffd polypoid mucosal thickening in the right maxillary [...] signed by Pal MERCADO T: Report ID: [id number] Reading Location: [place] [address] James Eduardo MD IMG CT PROCEDURES Sue l Result from Last 3 Months Insurance [facility] [place] [address] [facility] ACCESS CHOICE ANTHEM ACCESS CHOICE ANTHEM ACCESS CHOICE Advance Directives For more information, please contact: [phone] Documents on File Type Date Recorded Patient Skirt Maker Expl anation ADVANCE DIRECTIVE 08/29/2024 8:36 AM Xochitl r of Range Aide-Medical Care Teams Lubrication Supervisor Relationship Specialty Start Date End Date Alfredo Carey MD PCP - General Family Medicine 06/07/21
--- OUTSIDE RECORDS SUMMARY | 2025-03-13 10:40 | XMS_ITS | Encounter Summary ---
Author Organization [facility] Address [address] [place] [address] Care Team Providers Care Hand Box Folder Name Role Phone Alfredo Carey MD Primary Care Provider [phone] Encounter Details Date Type Department Care Team (Late st Contact Info) Description 12/21/2023 Lab Requisition [facility] - [facility] Lab [address] [place] [id number] Sherry Kruger MD [address] [facility] [address] [place] [address] Social History Tobacco Use Types Packs/Day Years Used Date Smoking Tobacco: Never Smokeless Tobacco: Never Comments No Sex and Gender Information Value Date Recorded Sex Assigned at Female 01/08/2021 2:22 PM [facility] Legal Sex Female 5:52 PM [facility] Gender Identity Female 01/08/2021 2:22 PM [facility] Sexual Orientation Straight 01/08/2021 2: 22 PM [facility] documented as of this encounter Plan of Treatment Not on file documented as of this encounter Procedures Procedure Name Priority Date/Time Associated Diagnosis Comments DERMATOPATHOLOGY Routine 12/21/2023 10:2 0 AM [facility] documented in this encounter Results * DERMATOPATHOLOGY (12/21/2023 10:20 AM [facility]ER) Case Report Dermatopathology Report Case: [id number] Authorizing Provider: Sherry Kruger MD Collected: 12/21/2023 10:20 AM Ordering Location: [facility] Received: 12/23/2023 01:04 PM Pathologist: Kelsey Burris MD Specimen: Skin, left post arm 4:11 PM [facility] Final Diagnosis Specimen A. SKIN, left post arm: SOLAR LENTIGO (L81.4) 4:11 PM [facility] Clinical History R/O Melanoma Nevus Irregular Border, Irregular Color Brown Papule 4:11 PM [facility] Gross Description Specimen A: Received is one formalin filled container labeled with the patient's name and designated left post arm. The specimen consists of a shave biopsy measuring 10x8x1 mm. Jar 0. 4:11 PM [facility] Microscopic Description Specimen A. SKIN, left post arm: There is orthokeratosis. There is a slight increase in epidermal thickness with lentiginous buds of hyperpigmented keratinocytes. The number of melanocytes is only mildly increased. In the dermis, there is basophilic degeneration of elastic fibers. 4:11 PM [facility] Disclaimer An external and internal positive and negative controls are appropriate for the histochemical, immunohistochemical and immunofluorescence stain(s) in this case (if any), except where stated explicitly. The performance characteristics of the stain(s) cited in this report were developed and its performance characteristic determined by the Dermatopathology Laboratory at [facility], directed by Dr. Sammy Osorio. These tests need not be, and therefore are not, approved by the [place] Food and Drug Administration. The tests are used for clinical purposes. Billing Codes Specimen Charges Stain Charges 15681 1 4:11 PM [facility] Embedded Images 4:11 PM [facility] Pathology/Cytolo gy TISSUE SPECIMEN FROM SKIN / Unknown 12/21/2023 10:20 AM [facility] 12/23/2023 1:04 PM [facility] Sherry Kruger MD LAB - PATHOLOGY/CYTOLOGY ORD ERABLES Final Result DERMATOPATHOLOGY LABORATORY [facility] - Department of Dermatology [facility] [address] [place] [address], [address] [phone] documented in this encounter Visit Diagnoses Not on filedocumented in this encounter Care Teams Hand Box Folder Relationship Specialty Start Date End Date Alfredo Carey MD [address] [place] [address] PCP - General 02/28/12 documented as of this encounter
== END 2025-03-13 09:42 | disposition home or self-care (01) ==
PROVIDERS: PCP Family Medicine; Visit Provider Obstetrics & Gynecology
DX: Z12.31 Encounter for screening mammogram for malignant neoplasm of breast (principal)
CPT/HCPCS: 77063; 77067